=== PATIENT | male | born 2000 | race Caucasian/White ===

== ENCOUNTER 2018-03-02 16:58 | Emergency (ER) | payer BC ==
[2018-03-02 17:40] VITALS: BP 135/64
[2018-03-02] MEDS ORDERED: Amoxicillin PO (*) 500 MG CAP PO ONE (18:04)
--- NOTE | 2018-03-02 18:07 | UC ---
Throat Pain/Nasal [place] HPI - HPI Summary HPI Summary: 17 y/o male presents to the urgent care c/o dry cough and sore throat for the past week. Pain w/ swallowing is 5/10. He has taking ibuprofen 400mg PO to alleviate symptoms. Last dose taken was at 1600pm. Sore throat worsen today w/ decrease appetite,and VAZQUEZ. Pt denies fever, SOB, chest pain, abdominal pain, urinary symptoms, N/V/D. Pt is UTD w/ all vaccines for his age. - History of Current Complaint Chief Complaint: UCRespiratory Stated Complaint: SORE THROAT Time Seen by Provider: 03/02/18 17:58 Hx Obtained From: Patient Onset/Duration: Gradual Onset, Lasting Weeks - 1 week, Worse Since - today Severity: Mild Pain Intensity: 5 Pain Scale Used: 0-10 Numeric Cough: Nonproductive Associated Signs & Symptoms: Positive: Dysphagia - Epiglottits Risk Factors Epiglottis Risk Factors: Negative - Allergies/Home Medications Allergies/Adverse Reactions: Allergies Allergy/AdvReac Type Severity Reaction Status Date / Time No Known Allergies Allergy Verified 03/02/18 17:37 PMH/Surg Hx/FS Hx/Imm Hx Previously Healthy: Yes - Pt denies PMHX - Surgical History Surgical History: None - Family History Known Family History: Positive: None - Pt denies FMHX - Social History Occupation: Student Lives: With Family Alcohol Use: Occasionally Substance Use Type: None Smoking Status (MU): Never Smoked Tobacco - Immunization History Most Recent Tetanus Shot: UTD Vaccination Up to Date: Yes Review of Systems Constitutional: Negative Skin: Negative Eyes: Negative ENT: Sore Throat, Ear Ache - B/L ear pain Respiratory: Cough - dry Cardiovascular: Negative Gastrointestinal: Negative Genitourinary: Negative Motor: Negative Neurovascular: Negative Musculoskeletal: Negative Neurological: Headache Psychological: Negative Is Patient Immunocompromised?: No All Other Systems Reviewed And Are Negative: Yes Physical Exam - Summary Physical Exam Summary: VITAL SIGNS: Reviewed. GENERAL: Patient is a well developed and nourished male adolescent who is sitting comfortable in the examining table. Patient is not in any acute respiratory distress. HEAD AND FACE: No signs of trauma. No ecchymosis, hematomas or skull depressions. No sinus tenderness. EYES: PERRLA, EOMI x 2, No injected conjunctiva, no nystagmus. No photophobia. EARS: Hearing grossly intact. Ear canals and tympanic membranes are within normal limits. MOUTH: Positive pharynx with erythema, exudates, palatal petechiae. B/L tonsillar enlargement with exudate. Uvula in midline. NECK: Supple, trachea is midline, Positive anterior cervical lymphadenopathy, no JVD, no carotid bruit, no c-spine tenderness, neck with full ROM. No meningeal signs, no Kernig's or brudzinskis signs. CHEST: Symmetric, no tenderness at palpation LUNGS: Clear to auscultation bilaterally. No wheezing or crackles. CVS: Regular rate and rhythm, S1 and S2 present, no murmurs or gallops appreciated. ABDOMEN: Soft, non-tender. No signs of distention. No rebound no guarding, and no masses palpated. Bowel sounds are normal. EXTREMITIES: FROM in all major joints, no edema, no cyanosis or clubbing. NEURO: Alert and oriented x 3. No acute neurological deficits. Speech is normal and follows commands. SKIN: Dry and warm Triage Information Reviewed: Yes Vital Signs: Initial Vital Signs Temp 97.7 F 03/02/18 17:37 Pulse 70 03/02/18 17:37 Resp 14 03/02/18 17:37 BP 135/64 03/02/18 17:37 Pulse Ox 99 03/02/18 17:37 Throat Pain/Nasal Course/Dx - Course Course Of Treatment: 17 y/o male presents to the urgent care c/o dry cough and sore throat for the past week. Pain w/ swallowing is 5/10. He has taking ibuprofen 400mg PO to alleviate symptoms. Last dose taken was at 1600pm. Sore throat worsen today w/ decrease appetite,and VAZQUEZ. Pt denies fever, SOB, chest pain, abdominal pain, urinary symptoms, N/V/D. Pt is UTD w/ all vaccines for his age. Hx obtained. Pt w/ pharyngitis on examination. Rapid strep ordered: result: positive. Strep pharyngitis. Rx Amoxicillin PO and Ibuprofen PO for pain and swelling. PT Advised on hand washing to avoid spreading. Also advised to rest, eat well and avoid strenuous exercise. If symptoms do not improve or worsen advised to return to the urgent care or f/u with her PCP for further evaluation and treatment. PT understood and agreed - Differential Dx/Diagnosis Differential Diagnosis/HQI/PQRI: Laryngitis, Mononucleosis, Pharyngitis, Tonsillitis, URI Provider Diagnoses: 1- Strep pharyngitis Discharge - Sign-Out/Discharge Documenting (check all that apply): Patient Departure - D/C home All imaging exams completed and their final reports reviewed: No Studies - Discharge Plan Condition: Stable Disposition: HOME Prescriptions: Amoxicillin PO (*) [Amoxicillin 500 MG CAP*] 500 mg PO Q12H #19 cap Ibuprofen TAB* [Motrin TAB* 600 MG] 600 mg PO Q6H PRN #30 tab PRN Reason: Sore Throat Patient Education Materials: Strep Throat (ED) Referrals: Kashmir EASTMAN,Grey Chapman [Primary Care Provider] - 3 Days Additional Instructions: 1- Please take the full course of the antibiotic to avoid resistance. encourage hand washing 2-Please take ibuprofen PO q6-8hrs prn as instructed after meals to alleviate pain and swelling. Increase fluid intake, eat well, rest and avoid strenuous exercise 3-If symptoms do not improve or worsen please return to the urgent care or f/u with your PCP in 3 days for further evaluation and treatment. - Billing Disposition and Condition Condition: STABLE Disposition: Home
== END 2018-03-02 18:16 | disposition home or self-care (01) ==
LOC: UCCORT 16:58
DX: J02.0 Streptococcal pharyngitis (principal)
CPT/HCPCS: 87651; 99202; A9270-GY; G0463

== ENCOUNTER 2018-10-02 15:30 | Emergency (ER) | payer BC ==
[2018-10-02 15:59] VITALS: BP 111/51
--- NOTE | 2018-10-02 16:22 | UC ---
Abdominal Pain Male HPI - HPI Summary HPI Summary: 18-year-old male comes in with a chief complaint of left-sided abdominal pain. Started about 5 days ago. Initially had some pain in the right upper quadrant lasted about an hour or 2 and then that went away. It is replaced by pain in the left upper quadrant and left side of the abdomen left lower quadrant of the abdomen. Patient has been able to eat and drink. Reports that bowels are normal. No urinary complaints. Does have some discomfort down into the left inguinal canal and some discomfort into the left testicle. Reports the pains 2- 3 out of 10. On occasion feels pulsatile. Has not had any surgeries in his abdomen. - History of Current Complaint Chief Complaint: UCAbdominalPain Stated Complaint: LEFT SIDE ABDOMINAL PAIN x5 DAYS Time Seen by Provider: 10/02/18 15:59 Pain Intensity: 3 - Allergies/Home Medications Allergies/Adverse Reactions: Allergies Allergy/AdvReac Type Severity Reaction Status Date / Time No Known Allergies Allergy Verified 10/02/18 15:52 Home Medications: Home Medications Ibuprofen 800 mg PO Q6H PRN 10/02/18 [History Confirmed 10/02/18] PMH/Surg Hx/FS Hx/Imm Hx Previously Healthy: Yes - Surgical History Surgical History: None - Family History Known Family History: Positive: None - Pt denies FMHX - Social History Alcohol Use: Occasionally Substance Use Type: None Smoking Status (MU): Never Smoked Tobacco - Immunization History Most Recent Tetanus Shot: UTD Vaccination Up to Date: Yes Review of Systems All Other Systems Reviewed And Are Negative: Yes Constitutional: Positive: Negative Skin: Positive: Negative Eyes: Positive: Negative ENT: Positive: Negative Respiratory: Positive: Negative Cardiovascular: Positive: Negative Gastrointestinal: Positive: Abdominal Pain Genitourinary: Positive: Negative Motor: Positive: Negative Neurovascular: Positive: Negative Musculoskeletal: Positive: Negative Neurological: Positive: Negative Psychological: Positive: Negative Is Patient Immunocompromised?: No Physical Exam Triage Information Reviewed: Yes Appearance: Well-Appearing, No Pain Distress, Well-Nourished Vital Signs: Initial Vital Signs Temp 98.2 F 10/02/18 15:53 Pulse 78 10/02/18 15:53 Resp 17 10/02/18 15:53 BP 111/51 10/02/18 15:53 Pulse Ox 99 10/02/18 15:53 Vital Signs Reviewed: Yes Eye Exam: Normal Eyes: Positive: Conjunctiva Clear Neck exam: Normal Neck: Positive: Supple Respiratory: Positive: Lungs clear, Normal breath sounds, No respiratory distress Cardiovascular: Positive: RRR Abdomen Description: Positive: Other: - MILD TENDERNESS TO PALPATION LUQ, LEFT ABD AND LLQ. MILD TENDERNESS PROXIMAL LEFT INGUINAL CANAL. NO MASS PALPATED.. Negative: CVA Tenderness (R), CVA Tenderness (L) Male Genital Exam: Positive: Other - LEFT EPIDIDYMUS IS ENLARGED AND NON TENDER. TESTICLES NORMAL AXIS, NON TENDER AND NOT SWOLLEN. Negative: Lesions, Scrotum Tenderness (R), Scrotum Tenderness (L), Testicular Tenderness (R), Testicular Tenderness (L) Musculoskeletal Exam: Normal Musculoskeletal: Positive: Strength Intact, ROM Intact Neurological Exam: Normal Neurological: Positive: Alert Psychological Exam: Normal Psychological: Positive: Age Appropriate Behavior Skin Exam: Normal Abd Pain Male Course/Dx - Course Course Of Treatment: Patient Name: MARY EWDARDS Medical Record#: [id number] Ordering Physician: Rafael Ortiz MD Acct.#: [id number] : 2000 Age: 18 Sex: M Location: [facility] Exam Date: 10/02/18 1616 ADM Status: [facility] ER Order Information: CT ABD/PEL W/O Accession Number: [id number] CPT: 54672 INDICATION: Left-sided abdominal pain. COMPARISON: There are no prior studies available for comparison. TECHNIQUE: A CT scan of the abdomen and pelvis was performed without intravenous and without oral contrast. Contiguous axial sections were obtained from the lung bases through the symphysis pubis. Images were reconstructed in the coronal and sagittal planes. FINDINGS: LUNG BASES: The lung bases are clear. No pleural effusion is present. LIVER: The liver is normal in size. No significant focal abnormality is seen on this noncontrast study. GALLBLADDER: No calcified gallstones are seen. BILE DUCTS: No intra or extrahepatic ductal distention is seen. SPLEEN: The spleen is enlarged measuring 15.3 x 6.5 x 13.0 cm. No focal abnormality is seen on this noncontrast study. There appears to be an accessory spleen in the splenic hilar region. PANCREAS: The pancreas is normal in size. No ductal distention or calcifications are seen. ADRENAL GLANDS: The adrenal glands are normal in size. KIDNEYS: The kidneys are normal in size. No renal calculi or hydronephrosis is seen. AORTA: The aorta is normal in caliber without calcific plaque. LYMPH NODES: No significantly enlarged lymph nodes are seen. BOWEL: The stomach, small and large bowel appear nondistended. The appendix appears to be within normal limits. There are scattered diverticula within the colon. There is no evidence for diverticulitis or colitis. PELVIC ORGANS: No bladder wall thickening is seen. The prostate gland appears within normal limits in size. PERITONEUM: No free intraperitoneal air or fluid is seen. BONES: No significant focal osseous abnormality is seen. IMPRESSION: 1. NO EVIDENCE FOR ACUTE FINDING ON THIS NONCONTRAST STUDY. 2. SPLENOMEGALY. <Electronically signed by Red Barnes MD in [place]> 10/02/18 [address] report and the urinalysis with the patient. On examination his left testicle is not swollen is nontender. The left epididymis is enlarged but nontender. Patient reports that he's always had that. CT did not show any acute findings. Patient had mono this year in July and August. That most likely explains the mild splenomegaly. I initially ordered an ultrasound the testicle however this was after ultrasound was gone from our building. Because the testicular pain is minimal and he has no other concerning symptoms the plan is for him to return here tomorrow in the morning to get a testicular ultrasound for the left testicular pain. We talked about if anything worsens overnight he's go to the emergency department. We talked about if the testicle is swollen PAIN more pain or felt ill he needs to go the emergency department right away. - Differential Dx/Clinical Impression Provider Diagnosis: Left sided abdominal pain, Pain in left testicle Discharge - Sign-Out/Discharge Documenting (check all that apply): Patient Departure All imaging exams completed and their final reports reviewed: Yes - Discharge Plan Condition: Stable Disposition: HOME Patient Education Materials: Acute Abdominal Pain (ED), Testicle Pain (ED) Referrals: Kashmir EASTMAN,Grey Chapman [Primary Care Provider] - Additional Instructions: FOLLOW UP WITH YOUR DOCTOR IF NOT COMPLETELY IMPROVED. RETURN HERE TOMORROW IN THE MORNING FOR A TESTICULAR ULTRASOUND. GO TO THE EMERGENCY DEPARTMENT FOR ANY WORSENING OF YOUR CONDITION; CONTINUED OR WORSE TESTICULAR OR ABDOMINAL PAIN, TESTICULAR SWELLING, YOU FEEL ILL OR ANY QUESTIONS OR CONCERNS. - Billing Disposition and Condition Condition: STABLE Disposition: Home
[2018-10-03 13:10] LABS: Albumin 5.1 g/dL (3.2-5.2); Calcium 10.4 mg/dL (8.6-10.3); Potassium 4.1 mmol/L (3.5-5.0)
[2018-10-03 13:16] LABS: BUN/Creatinine Ratio 22.8 (8-20); EGFR African American 151.3 (>60); Globulin 2.5 g/dL (2-4); Total Protein 7.6 g/dL (6.4-8.9)
[2018-10-03 13:30] LABS: ABS Basophils 0.1 10^3/ul (0-0.2); ABS Eosinophils 0.1 10^3/ul (0-0.6); ABS Lymphocytes 1.9 10^3/ul (1.0-4.8); ABS Monocytes 0.4 10^3/ul (0-0.8); ABS Neutrophils 4.6 10^3/ul (1.5-7.7); ABS Nucleated RBC 0.1 10^3/ul; Hematocrit 44 % (36-46); Hemoglobin 15.2 g/dL (14.0-18.0); Lymphocyte % 26.8 %; Mean Corpuscular HGB Conc 35 g/dL (31-36); Mean Corpuscular Hemoglobin 30 pg (27-31); Mean Corpuscular Volume 85 fL (80-94); Nucleated Red Blood Cells % 1.3; Platelet Count Platelets clumped. 10^3/uL (150-450); Red Blood Count 5.12 10^6 /uL (4.18-5.48); Red Cell Distribution Width 14 % (10.5-15)
== END 2018-10-02 17:44 | disposition home or self-care (01) ==
LOC: UCCORT 15:30
DX: R10.12 Left upper quadrant pain (principal); N50.819 Testicular pain, unspecified
CPT/HCPCS: 36415; 74176; 80053; 81003; 85025; 99211; G0463

== ENCOUNTER 2018-10-03 11:15 | Emergency (ER) | payer BC ==
--- NOTE | 2018-10-03 12:00 | UC ---
Abdominal Pain Male HPI - HPI Summary HPI Summary: 18 yo male seen here yesterday for left sided abd pain x [address] which showed splenomegaly blood work pending (CBC and CMP) Was told to come here for testicular U/S Denies any testicular pain or mass no f/c no n/v diagnosed with mono 08/19 no UTI symptoms no wt loss - History of Current Complaint Chief Complaint: UCAbdominalPain Stated Complaint: LEFT SIDE PAIN Time Seen by Provider: 10/03/18 11:27 Hx Obtained From: Patient Onset/Duration: Gradual Onset, Lasting Days Timing: Constant Severity Initially: Mild Severity Currently: Mild Pain Intensity: 3 Pain Scale Used: 0-10 Numeric Location: Discrete At: LUQ Radiates: No Character: Dull Aggravating Factor(s): Nothing Alleviating Factor(s): Nothing Associated Signs And Symptoms: Negative: Diaphoresis, Fever, Cough, Chest Pain, Dizzy, Back Pain, Constipation, Blood in Stool, Urinary Symptoms, Decreased Appetite, Vomiting, Diarrhea, Penile Discharge Male Torso: 1 - pain here - Allergies/Home Medications Allergies/Adverse Reactions: Allergies Allergy/AdvReac Type Severity Reaction Status Date / Time No Known Allergies Allergy Verified 10/03/18 11:31 PMH/Surg Hx/FS Hx/Imm Hx Previously Healthy: Yes - Surgical History Surgical History: None - Family History Known Family History: Positive: None - Pt denies FMHX, Non-Contributory - Social History Alcohol Use: Occasionally Substance Use Type: None Smoking Status (MU): Never Smoked Tobacco - Immunization History Most Recent Tetanus Shot: UTD Vaccination Up to Date: Yes Review of Systems All Other Systems Reviewed And Are Negative: Yes Constitutional: Positive: Negative Skin: Positive: Negative Eyes: Positive: Negative ENT: Positive: Negative Respiratory: Positive: Negative Cardiovascular: Positive: Negative Gastrointestinal: Positive: Abdominal Pain Genitourinary: Positive: Negative Motor: Positive: Negative Neurovascular: Positive: Negative Musculoskeletal: Positive: Negative Neurological: Positive: Negative Psychological: Positive: Negative Physical Exam Triage Information Reviewed: Yes Appearance: Well-Appearing, No Pain Distress, Well-Nourished Vital Signs: Initial Vital Signs Temp 98.1 F 10/03/18 11:31 Pulse 95 10/03/18 11:31 Resp 16 10/03/18 11:31 BP 122/69 10/03/18 11:31 Pulse Ox 100 10/03/18 11:31 Vital Signs Reviewed: Yes Eyes: Positive: Conjunctiva Clear ENT: Positive: Hearing grossly normal, TMs normal, Uvula midline. Negative: Pharyngeal erythema, Nasal congestion, Nasal drainage, Tonsillar swelling, Tonsillar exudate, Trismus, Muffled voice, Hoarse voice Neck: Positive: Supple, Nontender, Enlarged Nodes @ - [address], no anterior or supraclavicular adenopathy appreciated Respiratory: Positive: Chest non-tender, Lungs clear, Normal breath sounds, No respiratory distress, No accessory muscle use Cardiovascular: Positive: RRR, No Murmur Abdomen Description: Positive: Soft, Other: - tender LUQ>RUQ. Negative: Nontender, CVA Tenderness (R), CVA Tenderness (L), Distended, Guarding Male Genital Exam: Positive: Other - deferred-done yesterday Musculoskeletal: Positive: ROM Intact, No Edema Neurological: Positive: Alert Psychological Exam: Normal Skin Exam: Normal Diagnostics - Radiology No standard instances Radiology Interpretation Completed By: Radiologist Summary of Radiographic Findings: left varicocele Abd Pain Male Course/Dx - Course Course Of Treatment: has appt with his MD in [place] tomorrow - Differential Dx/Clinical Impression Provider Diagnosis: Left varicocele, Splenomegaly Discharge - Sign-Out/Discharge Documenting (check all that apply): Patient Departure All imaging exams completed and their final reports reviewed: Yes - Discharge Plan Condition: Stable Disposition: HOME Patient Education Materials: Varicocele (ED) Referrals: Kashmir EASTMAN,Grey Chapman [Primary Care Provider] - Additional Instructions: See your MD tomorrow re enlarged spleen and abd pain take CT and U/S reading - Billing Disposition and Condition Condition: STABLE Disposition: Home
[2018-10-03 13:36] VITALS: BP 113/86
== END 2018-10-03 13:42 | disposition home or self-care (01) ==
LOC: UCCORT 11:15
DX: I86.1 Scrotal varices (principal); R16.1 Splenomegaly, not elsewhere classified
CPT/HCPCS: 76870; 99212; G0463

== ENCOUNTER 2019-03-14 15:07 | Emergency (ER) | payer BC ==
[2019-03-14 15:16] VITALS: BP 116/66
--- NOTE | 2019-03-14 16:55 | UC ---
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 No specific injury. He cannot replicate the pain. He is not involved in any sports. He smokes occasionally. He denies any shortness of breath and no pain on deep inspiration. - History of Current Complaint Chief Complaint: UCChestPain Stated Complaint: RT SIDE CHEST PAIN Time Seen by Provider: 03/14/19 16:32 Hx Obtained From: Patient Onset/Duration: Gradual Onset, Lasting Days Timing: Intermittent Episodes Lasting: - Intermittent episodes come and go anytime during the day. Initial Severity: Mild Current Severity: Mild Pain Intensity: 6 Chest Pain Location: Right Anterior Character: Dull/Aching - Occasionally dull and aching. Aggravating Factor(s): Nothing Alleviating Factor(s): Spontaneous Resolution Associated Signs & Symptoms: Positive: Negative - Allergy/Home Medications Allergies/Adverse Reactions: Allergies Allergy/AdvReac Type Severity Reaction Status Date / Time No Known Allergies Allergy Verified 03/14/19 15:12 Home Medications: Home Medications Ibuprofen TAB* [Advil TAB*] 800 mg PO Q8H PRN 03/14/19 [History Confirmed ] PMH/Surg Hx/FS Hx/Imm Hx Previously Healthy: Yes Psychological History: Anxiety - Surgical History Surgical History: None - Family History Known Family History: Positive: None - Pt denies FMHX, Non-Contributory - Social History Occupation: Student Lives: Dormitory/Roommates Alcohol Use: Occasionally Substance Use Type: None Smoking Status (MU): Never Smoked Tobacco - Immunization History Most Recent Tetanus Shot: UTD Vaccination Up to Date: Yes Review of Systems All Other Systems Reviewed And Are Negative: Yes Cardiovascular: Positive: Other - Patient describes this as more of an inner ache and not so much chest wall pain. Psychological: Positive: Anxious - Patient states he is quite anxious and struggles with anxiety and he would like a chest x-ray just to alleviate his anxiety. Is Patient Immunocompromised?: No Physical Exam Triage Information Reviewed: Yes Appearance: Well-Appearing, No Pain Distress, Well-Nourished Vital Signs: Initial Vital Signs Temp 97.3 F 03/14/19 15:10 Pulse 71 03/14/19 15:10 Resp 20 03/14/19 15:10 BP 116/66 03/14/19 15:10 Pulse Ox 100 03/14/19 15:10 Vital Signs Reviewed: Yes Eyes: Positive: Conjunctiva Clear ENT: Positive: Hearing grossly normal, Pharynx normal, TMs normal, Uvula midline Neck: Positive: Supple, Nontender, No Lymphadenopathy Respiratory: Positive: Chest non-tender - Patient is unable to replicate the pain. He is not presently experiencing it., Lungs clear, Normal breath sounds, No respiratory distress, No accessory muscle use Cardiovascular: Positive: RRR, No Murmur, Pulses Normal, Brisk Capillary Refill Musculoskeletal Exam: Normal Neurological Exam: Normal Psychological Exam: Normal Skin Exam: Normal - Assessment/Plan Course Of Treatment: Chest x-ray:FINDINGS: The heart is within normal limits in size. Mediastinal and hilar contours appear within normal limits. The lungs are clear. No pleural effusion or pneumothorax is seen. IMPRESSION: NO EVIDENCE FOR ACTIVE CARDIOPULMONARY DISEASE. At this point time I think the patient just needed reassurance. Dr. Rivas interpreted the EKG. The patient can take Motrin every 8 hours over the next 2 days and follow up at the [facility] as needed. If he has any worsening symptoms, shortness of breath, increased chest pain he is to go to the emergency room. Patient is extremely relieved the chest x-ray and EKG are normal. - Clinical Impression Provider Diagnosis: Chest pain Discharge ED - Sign-Out/Discharge Documenting (check all that apply): Patient Departure All imaging exams completed and their final reports reviewed: Yes - Discharge Plan Condition: Good Disposition: HOME Patient Education Materials: Chest Pain (DC) Referrals: No Primary Care Phys,NOPCP [Primary Care Provider] - ADRIANE PEREZ [[facility], APPLICATION, OTHER] - Additional Instructions: Take ibuprofen 600 mg every 8 hours with the next day or 2. Go to the emergency room if you develop any difficulty breathing, worsening chest pain or any worsening of symptoms. - Billing Disposition and Condition Condition: GOOD Disposition: Home - Attestation Statements Provider Attestation: Per institutional requirements, I have reviewed the chart, however, I was not consulted specifically or made aware of this patient by the midlevel provider. I did not personally evaluate, interact with , or disposition this patient.
== END 2019-03-14 17:07 | disposition home or self-care (01) ==
LOC: UCCORT 15:07
DX: R07.89 Other chest pain (principal); F41.9 Anxiety disorder, unspecified
CPT/HCPCS: 71046; 93005; 99211; G0463